=== PATIENT | male | born 1995 ===

== ENCOUNTER → 2025-08-27 | Outpatient (CLI) | payer OTHER ==
[2025-08-27 14:11] LABS: Chlamydia Trachomatis Urine NOT DETECTED (NOT DETECT); Neisseria Gonorrhoea Urine NOT DETECTED (NOT DETECT)
== END | disposition home or self-care (01) ==
LOC: LAB 10:33 → LAB SHORT 10:33
DX: A60.01 Herpesviral infection of penis (principal)
CPT/HCPCS: 87491; 87591